=== PATIENT | male | born 1955 | race Caucasian/White ===

== ENCOUNTER → 2020-09-04 | Outpatient (CLI) | payer OTHER ==
[~2020-09-04] VITALS: Ht 5.1 cm; Wt 97.5 kg
[~2020-09-04] MED LIST: ALLOPURINOL 30300 M1 PO; LIPITOR 10 MG10 M1 PO; OMEPRAZOLE40 MG PO; VASOTEC5 MG PO
[2020-09-04 14:20] VITALS: BP 166/102
--- NOTE | 2020-09-04 14:51 | NUR ---
Pain Clinic Assessment: 1. History of Osteoarthritis: RIGHT HIP LUMBAR SPINE History of Rheumatoid Arthritis: DENIES 2. Height: 6 ft. 2 in. 5.1 cm. Weight: 215.0 lb. oz. 97.524 kg. Patient's BMI: 05850.8 3. Vital Signs: BP: 166/102 Pulse: 89 Resp: 20 Temp: 02 Sat: 100 ECG Mon: 4. Pain Intensity: 1 TO 3 5. Fall Risk: Dizziness: Needs help standing or walking: Fallen in the last 3 months: Fall risk comments: 6. Patient on Blood Thinner: None 7. History of Hypertension: Y 8. Opioid Therapy greater than 6 weeks: N Opiate Contract Signed: 9. Risk Assessment Tool Provided: LOW-[id number] 10. Functional Assessment Tool: 11. Recreational Drug Use: Never Drug Type: Tobacco Use: Never Smoker Tobacco Type: Amount or Packs/day: How Many Years: Alcohol Use: Yes Frequency: Weekly Quant: 6
== END | disposition home or self-care (01) ==
LOC: PAIN 11:17
PROVIDERS: ATTEND Anesthesiology Pain Medicine
DX: M54.16 Radiculopathy, lumbar region (principal); G89.29 Other chronic pain; M96.1 Postlaminectomy syndrome, not elsewhere classified; I10 Essential (primary) hypertension; M19.90 Unspecified osteoarthritis, unspecified site; Z98.890 Other specified postprocedural states; Z79.899 Other long term (current) drug therapy